=== PATIENT | female | born 1970 | race African-American/Black ===

== ENCOUNTER 2018-05-07 05:08 | Day surgery (SDC) | payer OTHER ==
[2018-05-06 14:18] VITALS: BMI 29.2
[2018-05-07] MEDS ORDERED: BUPIVACAINE HCL/PF 0.5% (5MG/ML) 10 ML VIAL ONE (08:13)
[2018-05-07] MEDS ORDERED: MIDAZOLAM HCL 2 MG/2 ML SINGLE DOSE VIAL ONE ×2 (08:15)
[2018-05-07] MEDS ORDERED: DEXAMETHASONE SOD PHOSPHATE/PF 10 MG/ML SDV ONE (08:20)
[2018-05-07] MEDS ORDERED: LACTATED RINGERS SOLUTION 1,000 ML IV SCH (08:30)
[2018-05-07] MEDS ORDERED: ACETAMINOPHEN 1000 MG/100 ML VIAL (NON FORMULARY) IVPB ONE (08:30)
[2018-05-07] MEDS ORDERED: ONDANSETRON 4 MG/2 ML VIAL IVPUSH PRN (08:30)
[2018-05-07] MEDS ORDERED: oxyCODONE HCL 5 MG TABLET PO PRN ×2 (08:30)
[2018-05-07] MEDS ORDERED: ceFAZolin SODIUM 1 GM VIAL IVPB ONE ×2 (10:34→14:50)
--- NOTE | 2018-05-07 12:17 | OP ---
Operative Note - Note: Operative Date: 05/07/18 Pre-Operative Diagnosis: right ankle tibia/fibula fracture Operation: open reduction internal fixation of bimalleolar right ankle fracture Surgeon: Rich Xiong Chief Nursing Officer: Melissa Morales Anesthesiologist/RECORDS ANALYSIS MANAGER: Kj Hicks Anesthesia: Local Estimated Blood Loss (mls): 20 Fluid Volume Replaced (mls): 800 Operative Report Dictated: Yes
--- NOTE | 2018-05-07 12:21 | SURG ---
Surgery Surveying Technician Note Surveying Technician: Melissa Morales PA-C Date of Service: 05/07/18 Diagnosis: right ankle bimalleolar fracture Procedure: open reduction/internal fixation of bimalleolar ankle fracture I was present for the entirety of the operative procedure. For further detail, please refer to operative report. Visit type - Case Type Case Type: Scheduled - Emergency Emergency Visit: No - New patient This patient is new to me today: Yes Date on this admission: 05/07/18
[2018-05-07] MEDS ORDERED: ACETAMINOPHEN INJECTION 100 ML IVPB ONE (12:27)
[2018-05-07 14:14] VITALS: TEMP 98.2
[2018-05-07] MEDS ORDERED: ceFAZolin SODIUM 1 GM VIAL ONE (14:43)
[2018-05-07] MEDS ORDERED: CEFAZOLIN 1 GM in DEXTROSE 5%-WATER - 50 ML IVPB ONE (15:00)
[2018-05-07 18:04] VITALS: BP 145/87; PULSE 82
--- NOTE | 2018-05-08 11:25 | OP ---
DATE OF OPERATION: 05/07/2018 PREOPERATIVE DIAGNOSIS: Right bimalleolar ankle fracture. POSTOPERATIVE DIAGNOSIS: Right bimalleolar ankle fracture. PROCEDURE: Open reduction internal fixation of right bimalleolar ankle fracture. SURGICAL ATTENDING: Rich Xiong MD SOCIAL PSYCHOLOGIST: FABRICIO Larson ANESTHESIA: Spinal and regional. CLOSURE: Clara plate and screws with a 5-0 lateral locking plate, appropriate screws 2 cannulated 4.0 screws medially, 0 Vicryl fascia, 2-0 Vicryl subcutaneous, jose for skin. ESTIMATED BLOOD LOSS: Less than 100 mL. COMPLICATIONS: None. CONDITION: To recovery room in stable condition. DESCRIPTION OF OPERATIVE PROCEDURE: Patient was taken to the operating room on May 07, 2018. Spinal and regional anesthesia was administered by the anesthesiologist. IV Kefzol was administered prophylactically prior to the case. Right lower extremity was prepped and draped in the usual sterile fashion. A 10-cm longitudinal incision over the tip, the distal end of fibula was incised from the ankle joint up proximally. Sharp dissection was carried one level down to the level of the fracture. Curettes and irrigation were used to remove soft tissue and clots from around the fracture. A serrated reduction clamp was used to obtain an anatomical reduction of the fracture. There was a quite large avulsion piece that was on the anterior distal aspect where the anterior tibia-fibular ligament was attached to that was also held in an anatomical position using a 0.2 reduction clamp. The fracture was lagged from anterior to posterior achieving good lag compression. A 5-hole distal fibular plate was then aspect fibula, multiple proximal and distal screws were drilled, depth gauged and secured with the appropriate size and type of screw. The initial 2 screws were non-locking to synch the plate to the bone. Then, the remaining screws that were placed were locked with locking variety. Excellent reduction and rigidity of the fracture were obtained. Next, our attention was directed to the medial malleolus. A 4-cm curved longitudinal incision over the medial malleolus was incised. Hemostasis was achieved using Bovie cautery. Sharp dissection was carried down to the level of the fracture. Curettes and irrigation were used to remove soft tissue and clots from around the fracture. A 0.2 reduction clamp was used to obtain an anatomical reduction of the fracture. Two guidewires from the 4.0 cannulated screws were drilled from the tip of the medial malleolus, past the fracture, into the distal tibia grabbing the posterior cortex. Proper placement was confirmed with the AP and lateral planes and mortise views using the image intensifier. They were measured for length and screwed with the appropriate size 4.0 lag screw achieved excellent fixation and compression across the fracture. The wires were removed. X-rays in the AP, lateral, and mortise views revealed anatomic reduction of the fracture in all planes. Both incisions were irrigated out with copious amounts of irrigation. Fascia was closed with 0 Vicryl, 2-0 for subcutaneous, and jose for skin. Sterile pressure dressing followed by a U-Splint was applied. Patient was awakened from anesthesia and transferred to recovery in stable condition. No complication. Estimated blood loss was negligible. Dru [id number]
== END 2018-05-07 17:15 | disposition home or self-care (01) ==
LOC: JASU-SURG 05:08
PROVIDERS: ATTEND Orthopaedic Surgery
PROC: 0QSG04Z Reposition Right Tibia with Internal Fixation Device, Open Approach (ICD-10-PCS; principal; 2018-05-07 09:00)
DX: S82.841A Displaced bimalleolar fracture of right lower leg, initial encounter for closed fracture (principal); X58.XXXA Exposure to other specified factors, initial encounter; Y93.9 Activity, unspecified; Y92.9 Unspecified place or not applicable; Y99.9 Unspecified external cause status
CPT/HCPCS: 27814; C1713; 76000-TC-FY; 84703; 94760; J0131